=== PATIENT | female | born 1980 | race Caucasian/White ===

== ENCOUNTER 2019-05-27 08:49 | Inpatient (IN) | payer BC ==
[2019-05-27] MEDS ORDERED: Promethazine INJ(RESTRICTED)* 25 MG/ML 1 ML VIAL IV ONE (11:17)
[2019-05-27] MEDS ORDERED: Nalbuphine* 10 MG/ML 1 ML VIAL IV ONE (11:17)
[2019-05-27] MEDS ORDERED: Lactated Ringers 1000 ML Bag* 1,000 ML IV ONE ×2 (11:17→17:47)
[2019-05-27] MEDS ORDERED: Buffered Lidocaine 1% SYRIN* 1 ML/SYRINGE INTRADERM ONE (11:17)
--- NOTE | 2019-05-27 11:27 | HP ---
General Information - Reason for Visit contractions every 5 minutes since 5AM. Pt reports ctx started last night after leaving the hospital. +FM, -LOF, +VB. - General Information Maternal Age: 38 Grav: 1 Para: 0 SAB: 0 IEA: 0 Estimated Due Date: 05/22/19 Determined By: LMP Gestational Age in Weeks/Days: 40.5 Maternal Blood Type and Rh: A Positive - Results this Serology/RPR Result: Non-Reactive Rubella Result: Immune HBsAg Result: Negative HIV Result: Negative GBS Culture Result: Negative Past Medical History Pertinent Past Medical History: See Records - history of hypertension Pertinent Past Surgical History: See Records - cholecystectomy Pertinent Family History: See Records - M: HTN, high chol, CVD; F: high chol, CA; MGF/MGM: HTN, CVD, DM; PGF: HTN, CVD; Puncle: CVD; PGM: osteoporosis, parkinson's - Antepartal Records Antepartal Records: Reviewed, Complicated by: - AMA, history of hypertension Review of Systems Constitutional: Uncomfortable CV Complaint: No Respiratory: Shortness of Breath: No Gastrointestinal: No Nausea/Vomiting, Normal Bowel Movement Genitourinary: No Dysuria, No Bleeding, No Leaking Fluid, Spotting Musculoskeletal: No Epigastric Pain, Contractions Neurological: No Headache, No Visual Changes Movement: Normal Exam Allergies/Adverse Reactions: Allergies amoxicillin Allergy (Mild, Verified 05/27/19 09:19) Rash Sulfa (Sulfonamide Antibiotics) Allergy (Verified 05/27/19 09:19) Rash T:99.1, P:86, R:16, BP: 109/83, O2:96 - Measurements Height: 5 ft 1 in Weight: 177 lb Weight in lbs: [id number] Body Mass Index (BMI): 33.4 Pre- Weight: 152 lb Weight Gained This : 25 lbs and 0 ozs - Exam Breast: Breast Exam Deferred CVA: No CVA Tenderness Extremities: No Edema Heart: Normal Rhythm/Heart Sounds HEENT: No Significant Findings Lungs: Clear Bilaterally Rectal: Rectal Exam Deferred Reflexes: DTR 2+ Thyroid: No Thyromegaly - Abdominal Exam Abdomen Exam: Fundal Height Consistent with Dates - Ultrasound/Biophysical Profile Ultrasound Status: Not Done Targeted Exam Findings Estimated Weight: 8lbs Cervical Exam: 4cm Effacement: 90% Station: -2 Presenting Part: Vertex Membrane Status: Intact Bleeding/Discharge: Bloody Show EFM Findings - External Monitor Findings Baseline Heart Rate: 145 External Monitor Findings: Accelerations Present, No Pattern of Variable or Late Decelerations, Variability Moderate, Baseline Stable Contractions: Regular, Moderate, 45-90 Seconds
[2019-05-27 12:29] LABS: ABS Lymphocytes 1.5 10^3/ul (1.0-4.8); ABS Monocytes 0.8 10^3/ul (0-0.8); ABS Neutrophils 10.3 10^3/ul (1.5-7.7); Eosinophil % 0.1 %; Hematocrit 34 % (35-47); Hemoglobin 12.1 g/dL (12.0-16.0); Lymphocyte % 11.7 %; Mean Corpuscular HGB Conc 36 g/dL (31-36); Mean Corpuscular Hemoglobin 30 pg (27-31); Mean Corpuscular Volume 84 fL (80-97); Mean Platelet Volume 8.5 fL (7.4-10.4); Platelet Count 163 10^3/uL (150-450); Red Blood Count 4.01 10^6 /uL (3.70-4.87); Red Cell Distribution Width 14 % (10-15); White Blood Count 12.6 10^3/uL (3.5-10.8)
[2019-05-27] MEDS ORDERED: OBEPIDURAL* 250 ML EPIDURAL ONE (17:05)
--- NOTE | 2019-05-27 17:08 | PN ---
Progress Note - Progress Note Date of Service: 05/27/19 SOAP: Subjective: Pt rested for a few hours with nubain and phenergan and now reports contractions increasing in intensity and frequency. Pt reports + bloody show, - LOF. Pt has not been able to eat or drink and complains of nausea and she has been voiding infrequently. Objective: BP: 124/96, T:99.8, P:96, FHR:145bpm, + accels, -decels, moderate variability, ctx q 4 minutes Assessment: 38 y.o. , [id number], active labor, GBS negative, cat I NST Plan: 1) Reviewed pain mgmt options and pt elects for epidural 2) IV fluids started 3) Anesthesia consult 4) Reevaluate when comfortable, or sooner PRN.
[2019-05-27] MEDS ORDERED: Famotidine TAB* 20 MG PO PRN (17:47)
[2019-05-27] MEDS ORDERED: Phenylephrine 40 MCG/ML SYRINGE IV PUSH PRN ×2 (17:47)
[2019-05-27] MEDS ORDERED: Sodium Citrate/Citric Acid* 15 ML UDC PO PRN (17:47)
[2019-05-27] MEDS ORDERED: EPHEDrine (Pressors)* 50 MG/ML VIAL IV PUSH PRN ×2 (17:47)
[2019-05-27] MEDS ORDERED: OBEPIDURAL* 250 ML EPIDURAL SCH (18:00)
[2019-05-27] MEDS: Lactated Ringers 1000 ML Bag* 1,000 ML IV SCH ×2 (18:07→21:35)
[2019-05-27 18:50] LABS: Urine Benzodiazepine Screen None Detected (None Detect); Urine Opiates Screen None Detected (None Detect)
[2019-05-27] MEDS ORDERED: Acetaminophen SUPP* 650 MG SUPP PR PRN (23:38)
[2019-05-27] MEDS ORDERED: Ondansetron ODT TAB* 4 MG PO PRN (23:41)
--- NOTE | 2019-05-28 00:10 | PN ---
Progress Note - Progress Note Date of Service: 05/28/19 SOAP: Subjective: Pt c/o left sided pubic bone pain with contractions and nausea and vomiting. Pt denies pressure. Pt denies headache or chills. Objective: FHR:165bpm. + accels, occasional variable, moderate variability. Cervix: 7cm/90 /-1 P: 115, BP: 121/75, T:99.8 Assessment: 38 y.o. , Cat II tracing, possible OP presentation Plan: 1) Tylenol for low grade fever 2) Zofran for nausea 3) Position changes for rotation 4) Reevaluate in 1hr or sooner PRN
[2019-05-28] MEDS: Lactated Ringers 1000 ML Bag* 1,000 ML IV SCH ×4 (01:17→13:20)
--- NOTE | 2019-05-28 02:16 | PN ---
Progress Note - Progress Note Date of Service: 05/28/19 SOAP: Subjective: Pt reports some pain with contractions. Pt denies headache, chest pain, SOB or dizziness. Pt denies pressure. Objective: T:97.3, BP:119/77 FHR: 160bpm, + accels occasional deep variables to 85bpm with rapid return to baseline, moderate variability. Assessment: 38 y.o. 40w6d EGA, suspected chorio, cat II tracing, LOP position Plan: 1) Continue position changes 2) Start Ampicillin and Gent 3) Reevaluate in 1 hrs or sooner PRN 4) Dr. Hodges aware of patient and agrees with plan
[2019-05-28] MEDS: Ampicillin ADVAN(*) 2 GM in NS 0.9% 100 ML* 100 ML IVPB SCH ×3 (02:58→17:54)
[2019-05-28] MEDS ORDERED: Gentamicin ADULT (*) 400 MG in NS 0.9% 100 ML* 100 ML IVPB ONE (03:00)
--- NOTE | 2019-05-28 08:43 | PN ---
Progress Note - Progress Note Date of Service: 05/28/19 SOAP: Subjective: Pt reports increasing rectal pressure. Objective: BP:103/76, HR;107, T:98.2, FHR: 160 bpm, +accels, occasional variables with return to baseline, moderate variability. cervix: 9100/0 Assessment: 38 y.o. 40w6d EGA, inadequate ctx Plan: 1) Dr. Hodges consult and he placed IUPC 2) Start pitocin augmentation 3) Reevaluate in 1 hr or sooner PRN 4) Continue position changes
[2019-05-28] MEDS ORDERED: Oxytocin in LR* 20 UNITS/1,000 ML BAG IVPB ONE (08:53)
[2019-05-28] MEDS ORDERED: Oxytocin in LR* 20 UNITS/1,000 ML BAG IVPB SCH ×2 (09:00→13:00)
[2019-05-28] MEDS ORDERED: Influenza VAC *QUAD* 2019-20* 0.5 ML SYRINGE IM ONE (09:00)
[2019-05-28] MEDS ORDERED: Famotidine IV* 10 MG/ML 2 ML (20 mg) IV ONE (09:43)
[2019-05-28] MEDS ORDERED: KETAMINE HCL* 50 MG/ML 10 ML VIAL ONE (09:45)
[2019-05-28] MEDS ORDERED: fentaNYL* 50 MCG/ML 2 ML VIAL (100 MCG VIAL) ONE (09:45)
[2019-05-28] MEDS ORDERED: Midazolam* 1 MG/ML 5 ML VIAL (5 MG) ONE (09:45)
[2019-05-28] MEDS ORDERED: Morphine PF AMP (0.5MG/ML)* 5 MG/10 ML AMP ONE (09:46)
[2019-05-28] MEDS ORDERED: ceFOXitin 2 GM IVPREMIX* 2 GM/50 ML BAG ONE (09:50)
[2019-05-28] MEDS ORDERED: Scopolamine 1.5 mg* PATCH ONE (10:33)
[2019-05-28] MEDS ORDERED: Lidocaine 2% w/ EPI 1:200,000* 20 ML SDV VIAL ONE (10:34)
[2019-05-28] MEDS ORDERED: Dexamethasone IV* 4 MG/ML 1 ML (4 MG) ONE (10:34)
[2019-05-28] MEDS ORDERED: Phenylephrine 10 MG/ML VIAL* 1 ML VIAL ONE (10:34)
[2019-05-28] MEDS ORDERED: Ondansetron INJ* 2 MG/ML VIAL ONE (10:34)
[2019-05-28] MEDS ORDERED: Lidocaine 2% PF* 10 ML AMP ONE (10:34)
[2019-05-28] MEDS ORDERED: Ketorolac INJ* 30 MG/ML 1 ML VIAL ONE (10:34)
[2019-05-28] MEDS ORDERED: EPHEDrine (Pressors)* 50 MG/ML VIAL ONE (10:49)
[2019-05-28] MEDS ORDERED: PROCHLORPERAZINE INJ 5 MG/ML 2 ML VIAL ONE (10:49)
[2019-05-28] MEDS ORDERED: DiMENhydriNATE IV* 50 MG/ML VIAL ONE (10:52)
[2019-05-28] MEDS ORDERED: Ondansetron INJ* 2 MG/ML VIAL IV PRN (10:56)
[2019-05-28] MEDS ORDERED: Naloxone* 0.4 MG/ML 1 ML VIAL IV PRN ×2 (10:56→11:00)
[2019-05-28] MEDS ORDERED: diPHENhydraMINE IV* 50 MG/ML 1 ml VIAL (BENADRYL) IV PRN (10:56)
[2019-05-28] MEDS ORDERED: PROCHLORPERAZINE INJ 5 MG/ML 2 ML VIAL IV PRN (10:56)
[2019-05-28] MEDS ORDERED: DiMENhydriNATE IV* 50 MG/ML VIAL IV PUSH PRN (10:56)
[2019-05-28] MEDS ORDERED: Nalbuphine* 10 MG/ML 1 ML VIAL IV PRN (10:56)
[2019-05-28] MEDS ORDERED: Naloxone* 2 MG in NS 0.9% 250 ML* 250 ML IV PRN (10:56)
[2019-05-28] MEDS ORDERED: fentaNYL* 50 MCG/ML 2 ML VIAL (100 MCG VIAL) IV PRN (11:00)
[2019-05-28] MEDS ORDERED: OXYTOCIN* 10 UNITS/ML 1 ML VIAL ONE (11:50)
[2019-05-28] MEDS ORDERED: Witch Hazel PAD* JAR TOPICAL PRN (12:09)
[2019-05-28] MEDS ORDERED: Acetaminophen TAB* 325 MG PO PRN (12:09)
[2019-05-28] MEDS ORDERED: oxyCODONE/Acetamin 5/325 MG* TAB PO PRN ×2 (12:09)
[2019-05-28] MEDS ORDERED: Dibucaine 1% 28.35 GM TUBE PR PRN (12:09)
[2019-05-28] MEDS ORDERED: Glycerin ADULT SUPP PR PRN (12:09)
[2019-05-28] MEDS: Simethicone TAB* 80 MG TAB.CHEW PO SCH ×3 (12:33→22:20)
[2019-05-28] MEDS ORDERED: Lactated Ringers 1000 ML Bag* 1,000 ML IV SCH (13:00)
[2019-05-28] MEDS: Clindamycin 900 MG/D5W BAG(*) 900 MG/50 ML BAG IVPB SCH ×2 (13:21→21:01)
[2019-05-28] MEDS ORDERED: Gentamicin ADULT (*) 40 MG/ML VIAL (2 ML VIAL = 80 MG) IVPB SCH (14:00)
[2019-05-28] MEDS: Gentamicin ADULT (*) 120 MG in NS 0.9% 100 ML* 100 ML IVPB SCH ×2 (14:06→21:58)
[2019-05-28] MEDS: Docusate CAP* 100 MG PO SCH ×2 (14:44→21:12)
[2019-05-28] MEDS: Ketorolac INJ* 30 MG/ML 1 ML VIAL IV PRN (17:50)
[2019-05-28] MEDS ORDERED: NS 0.9% 100 ML* 0 ML ONE (21:54)
[2019-05-29] MEDS: Ketorolac INJ* 30 MG/ML 1 ML VIAL IV PRN ×3 (00:01→13:00)
[2019-05-29] MEDS: Ampicillin ADVAN(*) 2 GM in NS 0.9% 100 ML* 100 ML IVPB SCH ×2 (00:11→06:05)
--- NOTE | 2019-05-29 02:22 | OP ---
OPERATIVE REPORT: DATE OF OPERATION: 05/28/19 DATE OF : 80 SURGEON: Annika Ramos MD REGENERATOR OPERATOR: Penny Sharif CM ANESTHESIOLOGIST: Dr. Tineo. ANESTHESIA: Epidural. PRE-OP DIAGNOSIS: Intrauterine 40-6/7 weeks, category 2 heart tracing, chorioamnionitis, thick meconium. POST-OP DIAGNOSIS: Intrauterine 40-6/7 weeks, category 2 heart tracing, chorioamnionitis, thick meconium, and delivered. OPERATIVE PROCEDURE: Primary low-transverse section. ESTIMATED BLOOD LOSS: 800 cc. URINE OUTPUT: 400 cc of concentrated yellow urine. FLUIDS: 2800 cc of crystalloid. FINDINGS: Revealed a vertex male infant, direct OP. Nuchal cord, body cord x2. Thick meconium. Purulent amniotic fluid. Placenta calcified, intact with foul odor. Placenta culture sent. Placenta sent for pathology. Appear to be intact 3 vessel cord with manual extraction. Uterine cavity without evidence of retained products of conception. No evidence of retained membranes or placental tissue with uterine exploration. Normal appearing tubes and ovaries bilaterally. Extension on the right going down to the level of the cervix. Weight was 7 pounds 1 ounce. COMPLICATIONS: None apparent. DISPOSITION: Stable to recovery room. DESCRIPTION OF PROCEDURE: The patient was placed in dorsal lithotomy position. The abdomen was prepped and draped in a sterile standard fashion. Anesthesia was tested to appropriate level. An incision was made 2 fingerbreadths above the pubic symphysis. This was carried down to the fascia. Fascia was scored in the midline and extended laterally and superiorly using curved Guerra scissors. The fascia was both superiorly and inferiorly with blunt and sharp dissection. The peritoneum was then entered bluntly. The peritoneal incision was extended bluntly. Bladder blade was inserted. The lower uterine segment was identified. Allis was used to tent up on the lower uterine segment. Incision was made with scalpel. This was carried down through to the membranes. Purulent thick meconium fluid was noted. Uterine incision was extended laterally and superiorly using bandage scissors. The was found to be direct OP, delivered direct OP anterior with the left arm, which was delivered before the head . Nuchal cord was reduced and the body cord was reduced x2. The cord was milked, clamped, and the infant was handed off to awaiting events assistant. Appropriate cord blood was obtained. Placenta was then extracted. Uterus was exteriorized, wrapped in warm moist laparotomy sponge. Uterine cavity was explored and noted to be free of any membranes or placental tissue. There was a fairly large extension noted on the right, extending down to the cervix. This was reapproximated using 0 Vicryl in a running locked fashion. The hysterotomy site was then reapproximated in 2 layers, first layer running locked and the second layer running imbricated. Tubes and ovaries were noted to have a normal appearance. Uterus was returned intraabdominally. Hysterotomy site was visualized and the extension was visualized and noted both to be hemostatic. The patient was counseled intraoperatively that given the extension to avoid any trial of labor in the future. Once hemostasis was assured, the peritoneum was clamped with Dana and the peritoneum was then reapproximated using 3-0 Vicryl in a running fashion. Subfascial area was visualized. Hemostasis was assured and the fascia was then reapproximated with 0 Vicryl x2 in a running fashion. The Camper's fascia was lavaged, hemostasis was assured with Bovie coagulation, and the Camper's fascia was reapproximated using 3- 0 Vicryl in an interrupted fashion. The skin was then reapproximated using a 4-0 Monocryl in a subcuticular fashion. Mastisol and Steris were applied. All sponge, instrument, blade counts were correct at the end of the case. The patient tolerated the procedure well and went to recovery room in stable condition. [id number] #: [id number] F F THOMPSON HOSPITALJavier
[2019-05-29] MEDS: Clindamycin 900 MG/D5W BAG(*) 900 MG/50 ML BAG IVPB SCH (05:01)
[2019-05-29] MEDS: Gentamicin ADULT (*) 120 MG in NS 0.9% 100 ML* 100 ML IVPB SCH (06:44)
[2019-05-29 07:00] LABS: ABS Lymphocytes 1.5 10^3/ul (1.0-4.8); ABS Monocytes 1.3 10^3/ul (0-0.8); ABS Neutrophils 16.2 10^3/ul (1.5-7.7); Eosinophil % 0.1 %; Hematocrit 27 % (35-47); Hemoglobin 9.6 g/dL (12.0-16.0); Lymphocyte % 8.1 %; Mean Corpuscular HGB Conc 35 g/dL (31-36); Mean Corpuscular Hemoglobin 30 pg (27-31); Mean Corpuscular Volume 86 fL (80-97); Mean Platelet Volume 8.8 fL (7.4-10.4); Platelet Count 137 10^3/uL (150-450); Red Blood Count 3.19 10^6 /uL (3.70-4.87); Red Cell Distribution Width 14 % (10-15); White Blood Count 19.1 10^3/uL (3.5-10.8)
[2019-05-29] MEDS: Docusate CAP* 100 MG PO SCH ×3 (08:24→21:14)
[2019-05-29] MEDS: Simethicone TAB* 80 MG TAB.CHEW PO SCH ×4 (08:25→21:14)
[2019-05-29] MEDS: Ferrous Gluconate TAB* 324 MG TAB PO SCH ×2 (08:25→21:13)
[2019-05-29] MEDS: oxyCODONE/Acetamin 5/325 MG* TAB PO PRN ×3 (13:00→21:14)
[2019-05-29] MEDS: Pantoprazole TAB * 40 MG TAB PO SCH (21:14)
[2019-05-30] MEDS: Simethicone TAB* 80 MG TAB.CHEW PO SCH ×4 (09:00→20:46)
[2019-05-30] MEDS: Ferrous Gluconate TAB* 324 MG TAB PO SCH ×2 (09:01→20:45)
[2019-05-30] MEDS: Docusate CAP* 100 MG PO SCH ×3 (09:03→20:45)
[2019-05-30] MEDS: Ibuprofen TAB* 600 MG PO PRN ×3 (09:03→22:11)
[2019-05-30] MEDS: oxyCODONE/Acetamin 5/325 MG* TAB PO PRN ×4 (09:06→22:17)
[2019-05-30] MEDS: Pantoprazole TAB * 40 MG TAB PO SCH (20:46)
[2019-05-31] MEDS: Ibuprofen TAB* 600 MG PO PRN (06:54)
[2019-05-31 07:51] VITALS: BP 122/79
[2019-05-31] MEDS: Simethicone TAB* 80 MG TAB.CHEW PO SCH (08:49)
[2019-05-31] MEDS: Docusate CAP* 100 MG PO SCH (08:49)
[2019-05-31] MEDS: Ferrous Gluconate TAB* 324 MG TAB PO SCH (08:49)
[2019-05-31] MEDS: oxyCODONE/Acetamin 5/325 MG* TAB PO PRN (10:43)
[2019-05-31] MEDS ORDERED: Scopolamine PATCH Remove* 1 NOTE MISC PATCH OFF PRN (10:58)
== END 2019-05-31 11:23 | disposition home or self-care (01) | DRG 540 ==
LOC: MCHOBOUT 08:49 → MCHOB 11:30
PROVIDERS: ADMIT Midwife; ATTEND Obstetrics & Gynecology
PROC: 10D00Z1 Extraction of Products of Conception, Low, Open Approach (ICD-10-PCS; principal; 2019-05-28 10:17)
DX: O48.0 Post-term pregnancy (principal); O77.0 Labor and delivery complicated by meconium in amniotic fluid; O76 Abnormality in fetal heart rate and rhythm complicating labor and delivery; O41.1290 Chorioamnionitis, unspecified trimester, not applicable or unspecified; O69.89X0 Labor and delivery complicated by other cord complications, not applicable or unspecified; O90.81 Anemia of the puerperium; D64.9 Anemia, unspecified; O43.899 Other placental disorders, unspecified trimester; Z3A.40 40 weeks gestation of pregnancy; Z37.0 Single live birth
CPT/HCPCS: 36415; 80307; 85025; 86850; 86900; 86901; 87070; 87077; 87186; 87205; 88307; 90686; A9270-GY; J0694; J0780; J1100; J1240; J1580; J1885; J2001; J2250; J2300; J2405; J2550; J2590; J3010

== ENCOUNTER 2021-02-19 05:40 | Inpatient (IN) ==
[2021-02-19] MEDS ORDERED: Lactated Ringers 1000 ml BAG 1,000 ML IV SCH ×2 (06:00→10:00)
[2021-02-19] MEDS ORDERED: Buffered Lidocaine 1% SYRIN 1 ml INTRADERM ONE (06:00)
[2021-02-19 07:42] LABS: Urine Benzodiazepine Screen None Detected (None Detect); Urine Cannabinoids Screen None Detected (None Detect); Urine Opiates Screen None Detected (None Detect)
[2021-02-19] MEDS ORDERED: Morphine PF AMP (0.5MG/ML) 5 MG/10 ML AMP ONE (07:45)
[2021-02-19] MEDS ORDERED: fentaNYL 100 mcg/2 ml 50 MCG/ML VIAL ONE (07:45)
[2021-02-19] MEDS ORDERED: diPHENhydraMINE IV 50 MG/ML 1 ml VIAL (BENADRYL) IV PRN (07:48)
[2021-02-19] MEDS ORDERED: Naloxone 0.4 mg VIAL 0.4 mg/ml 1 ml VIAL IV PRN (07:48)
[2021-02-19] MEDS ORDERED: Ondansetron 4 mg VIAL 2 MG/ML 2 ml VIAL IV PRN (07:48)
[2021-02-19] MEDS ORDERED: Gentamicin ADULT 340 MG in NS 0.9% 100 ml BAG 100 ML IVPB ONE (08:00)
[2021-02-19] MEDS ORDERED: Clindamycin 900 MG/D5W BAG IVPB ONE (08:00)
[2021-02-19] MEDS ORDERED: Phenylephrine 40 mcg/mL 10mL (400mcg) SYRINGE ONE (08:13)
[2021-02-19] MEDS ORDERED: EPHEDrine (Pressors) 50 MG/ML VIAL ONE (08:17)
[2021-02-19] MEDS ORDERED: Oxytocin 10 UNITS/ML 1 ML VIAL ONE (08:28)
[2021-02-19] MEDS ORDERED: Ondansetron 4 mg VIAL 2 MG/ML 2 ml VIAL ONE (08:49)
[2021-02-19] MEDS ORDERED: Glycerin ADULT 2.4 gm SUPP PR PRN (09:24)
[2021-02-19] MEDS ORDERED: Witch Hazel PAD JAR TOPICAL PRN (09:24)
[2021-02-19] MEDS ORDERED: Dibucaine 1% OINT 28.35 GM TUBE PR PRN (09:24)
[2021-02-19 11:44] LABS: Urine Appearance Clear; Urine Bilirubin Negative (Negative); Urine Blood Negative (Negative); Urine Color Straw; Urine Glucose Negative (Negative); Urine Ketones Negative (Negative); Urine Nitrite Negative (Negative); Urine Protein Negative (Negative); Urine Specific Gravity 1.003 (1.002-1.030); Urine Urobilinogen Negative (Negative)
[2021-02-20 07:37] LABS: ABS Lymphocytes 1.4 10^3/ul (1.0-4.8); ABS Monocytes 0.5 10^3/ul (0-0.8); ABS Neutrophils 6.4 10^3/ul (1.5-7.7); Eosinophil % 0.4 %; Hematocrit 34 % (35-47); Hemoglobin 11.7 g/dL (12.0-16.0); Lymphocyte % 16.7 %; Mean Corpuscular HGB Conc 35 g/dL (31-36); Mean Corpuscular Hemoglobin 31 pg (27-31); Mean Corpuscular Volume 88 fL (80-97); Mean Platelet Volume 8.8 fL (7.4-10.4); Platelet Count 133 10^3/uL (150-450); Red Blood Count 3.84 10^6 /uL (3.70-4.87); Red Cell Distribution Width 14 % (10-15); White Blood Count 8.3 10^3/uL (3.5-10.8)
[2021-02-21 08:29] VITALS: BP 133/89
== END 2021-02-21 09:53 | disposition home or self-care (01) | DRG 787 ==
LOC: MCHOB 05:40
PROVIDERS: ADMIT Obstetrics & Gynecology; ATTEND Obstetrics & Gynecology